=== PATIENT | male | born 1955 ===

== ENCOUNTER 2024-12-11 10:48 | Outpatient (AMB) | payer MEDICARE, SELFPAY ==
--- NOTE | 2024-12-11 10:52 | A.OFFVIS_ITS ---
Intake Visit Reasons: 2 YR follow up Allergies No Known Allergies Allergy (Verified 12/10/24 10:28) HPI Comments Details: 69 years old man with benign essential tremor. It was still there affecting his hand in certain positions but has not significantly worsened. There was no new symptom. [facility] Medical History (Updated 12/11/24 @ 11:10 by Dillan Robertson MD) Anxiety Cerebral microvascular disease Review of Systems Const Details: Mild tremor. Physical Exam Neuro Other: Mental Status: Alert and oriented to person, place, and time. Normal attention. Normal spontaneous speech, fluency, and comprehension. No obvious issues with mood and memory. Affect is appropriate. Cranial Nerves: CN II: Visual elliott full to confrontation, visual acuity intact. CN III, IV, : Pupils equal, round, reactive to light and accommodation. Extraocular movements are normal. CN V: Facial sensation is normal. CN VII: Facial movements symmetrical. CN VIII: Hearing intact to bedside conversation is normal. CN IX, X: Palate elevates symmetrically. CN XI: Shoulder shrug and head turn symmetrical. CN XII: Tongue midline without atrophy or fasciculations. Extrapyramidal: Full facial expressions and blinking. No rigidity. Mild right hand postural tremor Speech: Normal; no dysarthria or tremor. Assessment & Plan Assessment & Plan (1) Tremor: Comment: MRI brain WO at in July 2018: Mild MVD. Code(s): R25.1 - Tremor, unspecified Category: Medical Plan Impression recommendations: 69 years old man with mild postural right hand tremor. Balance gait and coordination were normal. Speech was normal. Mental status was normal. He was reassured and educated and at this time no medicine was prescribed. I would see him back in 3 years' time. Coding Level of Care Code Est Pt Level 4 (69107) Diagnoses Tremor R25.1
--- OUTSIDE RECORDS SUMMARY | 2024-12-11 12:39 | XMS_ITS | Clinical Summary ---
Author Organization [facility] [address] [facility] lding Address [address] [place] [address] Phone Care Team Providers Care Automation And Control Engineer Name Role Phone Shira Alvarez MD Primary Care Provider Allergies No known active allergies Medications cholecalciferol (VITAMIN D-3) 50 mcg (2,000 unit) tablet Take 1 Cap by mouth daily. Active medical supply, miscellaneous (MISCELLANEOUS MEDICAL SUPPLY MISC) CPAP Inhale 6-8 mm into the lungs at bedtime. Patient using [employer] for supplies. 021 Active MULTIVITAMIN ORAL 1 TABLET DAILY Activ e triamcinolone acetonide (KENALOG-40) 40 mg/mL injection Take 1 mL by injection route. 023 Active gabapentin (NEURONTIN) 300 mg capsule Take 1 Capsule by mouth 2 times daily as needed (Back pain). 180 capsule 1 025 Active omeprazole (PriLOSEC) [address] capsule TAKE ONE CAPSULE BY MOUTH EVERY DAY 90 capsule 1 025 Active meloxicam (MOBIC) 15 mg tablet TAKE ONE TABLET BY MOUTH EVERY DAY 90 tablet 1 025 Active pravastatin (PRAVACHOL) 80 mg tablet TAKE ONE TABLET BY MOUTH EVERY DAY 90 tablet 1 025 Active amLODIPine (NORVASC) 5 mg tablet TAKE ONE TABLET BY MOUTH EVERY DAY 90 tablet 1 025 Active benazepriL (LOTENSIN) 10 mg tablet TAKE ONE TABLET BY MOUTH EVERY DAY 90 tablet 1 025 Active tirzepatide, weight loss, (Zepbound) 5 mg/0.5 mL injection Inject 0.5 mL (5 mg total) under the skin every 7 (seven) days. 2 mL 025 Active hylan (Synvisc-One) 48 mg/6 mL syringe injection Take 48 mg by intraarticular route. 023 2024 Discontinued(T herapy completed) tirzepatide, weight loss, (Zepbound) 2.5 mg/0.5 mL injection Inject 0.5 mL (2.5 mg total) under the skin every 7 (seven) days. 2 mL 025 2024 Discontinued tirzepatide, weight loss, (Zepbound) 5 mg/0.5 mL injection Inject 0.5 mL (5 mg total) under the skin every 7 (seven) days for 28 days. 2 mL 025 2024 Discontinued Active Problems Problem Noted Date Diagnosed Date Microalbuminuria 07/10/2024 Effusion of right knee joint 01/25/2022 Overuse syndrome 01/25/2022 Essential hypertension 06/21/2021 Left hip pain 06/21/2021 Vitamin D deficiency 03/28/2018 Overweight (BMI 25.0-29.9) 07/18/2017 Essential tremor 05/02/2017 Overview (01/29/2024): On Primidone- Dr Robertson Obstructive sleep apnea 04/10/2017 Lumbosacral ligament sprain 07/06/2016 Sprain of sacroiliac ligament 07/06/2016 Hearing loss 05/21/2015 Overview (01/29/2024): 05/25 symmetrical high frequency only Osteoarthritis, knee 01/24/2010 Erectile dysfunction 03/20/2006 Lumbago 02/09/2006 Overview (01/29/2024): Chiro initially then increased pain--MRI ER disc herniation--Shaun--PT symptoms much improved, no surgery Follows with [facility]- epidural injections X 5 S/p lumbar decomp surgery Hypothyroidism 07/08/2005 Pure hypercholesterolemia 07/08/2005 Overview (01/29/2024): Lovastatin--pt stopped and did not followup, stated caused decreased memory. On pravastain now Encounters Date Type Department Care Team Description 12/05/2024 Telephone Bariatric Surgery - [address] [phone] Nazia Cain PA 11/26/2024 Telephone Pulmonology [address] [phone] Natalia Ashley NP 11/17/2024 Telephone Pulmonology [address] [phone] Shalini Maldonado MA 11/13/2024 8:30 AM EDT [facility] [address] [phone] Natalia Ashley NP Obstructive sleep apnea (Primary Dx); Essential hypertension; Overweight (BMI 25.0-29.9) 11/06/2024 Telephone Bariatric Surgery - [address] [phone] Nazia Cain PA 10/07/2024 3:15 PM EDT Office Visit Bariatric Surgery [address] [phone] Nazia Cain PA Overweight (BMI 25.0-29.9) (Primary Dx) from Last 3 Months Immunizations Immunization Administration Dates Next Due COVID-19 (Moderna/Spikevax) 12yo and older 12/06/2023 COVID-19 (Pfizer/Comirnaty) 12yo and older 01/02/2023 Influenza Quadravalent, 0.5m l (Fluad) 65yo and older 01/02/2023,12/28/2021,01/02/2021 Influenza Quadravalent, MDCK , 0.5ml, preservative free (Flucelvax) 6mo and older 12/31/2018,12/30/2017 Influenza Quadravalent, MDCK , 0.5ml, with preservative (Flucelvax) 6mo and older 01/03/2017 Influenza Quadrivalent, 0.5m l, preservative free (Fluarix; FluLaval; Fluzone) ages 6mo and older (Afluria) 3yo and older 10/26/2019 Influenza trivalent, 0.5mL ( Fluad) 65yo and older 11/25/2023,01/02/2023 Influenza trivalent, 0.5mL, preservative free (Fluarix; FluLaval; Fluzone) ages 6mo and older (Afluria) 3 years and older 12/31/2018,12/17/2015,01/22/2015,2013,01/01/2013,03/15/2012,12/20/2010,1 03/26/2009 Influenza trivalent, with preservative (Fluzone; Afluria) 6mo and older 12/17/2015,01/22/2015,12/18/2013,2012,03/15/2012,12/20/2010,01/24/2010 Influenza, Unspecified 12/10/2017 Moderna SARS-CoV-2 COVID-19, mRNA, LNP-S, preservative free 01/13/2021 Pfizer SARS-CoV-2 COVID-19, mRNA, LNP-S, preservative free 11/25/2023,01/02/2023,01/13/2021,2020,05/18/2020 Pneumococcal conjugate 20 va lent (Prevnar 20, PCV 20) 2mo and older 11/29/2021,05/25/2021 RSV, bivalent, protein subun it RSVpreF, 0.5mL, Preservative Free (ABRYSVO) 50yo and older or 32 through 36 wks of 01/21/2023 Td Tetanus diptheria (Tdvax) 7yo and older 07/07/2005 Tdap Tetanus diptheria acell ular pertussis (Boostrix; Adacel) 7yo and older 08/08/2013 Zoster recombinant (Shingrix ) 19yo and older 12/15/2017,09/08/2017 Surgical History Surgery Date Site/Laterality Comments TONSILLECTOMY PROCEDURE: HISTORICAL TONSILLECTOMY COLONOSCOPY 10/13/2005 PROCEDURE: HISTORICAL COLONOSCOPY; COMMENT: normal OTHER SURGICAL HISTORY 01/2020 PROCEDURE: DECOMPRESS DISC RF LUMBAR; COMMENT: Dr. Quintana HIP ARTHROPLASTY 03/27/2022 Left PROCEDURE: HISTORICAL HIP REPLACEMENT; COMMENT: at [place], [place] Family History Medical History Relation Name Comments No Known Problems Brother 1 No Known Problems Brother 2 No Known Problems Daughter Hypertension Father Hyperlipidemia Mother Stroke Mother Lung cancer Sister Multiple sclerosis Sister No Known Problems Son 1 Other: kidney failure Son 2 Relation Name Status Comments Brother 1 Alive Brother 2 Alive Daughter Alive Father Alive Mother Alive Sister Alive Son 1 Alive Son 2 Alive Social History Tobacco Use Types Packs/Day Years Used Date Smoking Tobacco: Never Smokeless Tobacco: Never Tobacco Cessation:Counseling Given: Not Answered Alcohol Use Standard Drinks/Week Comments Yes 0 (1 standard drink = 0.6 oz pur e alcohol) Housing Instability Answer Date Recorde d Are you worried that in the next 2 months you may not have stable housing? Patient declined 07/03/2024 Food Access & Nutrition Answer Date Rec orded Do you have access to a vari ety of food including fruits and vegetables? Patient declined 07/03/2024 Health Literacy Answer Date Recorded How often do you need to hav e someone help you when you read instructions, pamphlets, or other written material from your doctor or pharmacy? Patient declined 07/03/2024 Caregiver: How often do you need to have someone help you when you read instructions, pamphlets, or other written material from your doctor or pharmacy? Not on file 025 Financial Risk Answer Date Recorded How hard is it for you to pa y for the very basics like food, housing, medical care, and air conditioning / heating? Patient declined 07/03/2024 Transportation Answer Date Recorded Has the lack of transportati on kept you from meetings, work, or from getting things needed for daily living? Patient declined 07/03/2024 Has the lack of transportati on kept you from medical appointments or from getting medications? Patient declined 07/03/2024 Social Isolation Answer Date Recorded How often do you feel lonely or isolated from th ose around you? Never 07/03/2024 Food Risk Answer Date Recorded Within the past 12 months we worried whether our food would run out before we got money to buy more. Patient declined 025 Within the past 12 months th e food we bought just didn't last and we didn't have money to get more. Patient declined 06/11 Dependent Care Answer Date Recorded Do you need help finding or paying for care for your loved ones. For example, child protective services specialist or elderly care for an older adult? Patient declined 07/03/2024 Education Answer Date Recorded Do you think completing more education or training, like finishing a GED, going to college, or learning a trade, would be helpful for you? Patient declined 07/03/2024 Employment and Income Answer Date Recor ded During the last four weeks, have you been actively looking for work? No 07/03/2024 Living Situation Answer Date Recorded What is your living situation? Unrecognized valu e 07/03/2024 Sex and Gender Information Value Date Recorded Sex Assigned at Not on file Legal Sex Male 10:08 AM EST Gender Identity Not on file Sexual Orientation Not on file Obstetrics History Last Filed Vital Signs Vital Sign Reading Time Taken Comments Blood Pressure 104/60 11/13/2024 8:30 AM EDT Pulse 65 11/13/2024 8:30 AM EDT Temperature 36.4 C (97.5 F) 11/13/2024 8:30 AM EDT Respiratory Rate 16 11/13/2024 8:30 AM EDT Oxygen Saturation 95% 11/13/2024 8:30 AM EDT Inhaled Oxygen Concentration - - Weight 99.9 kg (220 lb 3.2 oz) 11/13/2024 8:30 A M EDT Height 190.5 cm (6' 3 ) 11/13/2024 8:30 AM EDT Body Mass Index 27.52 11/13/2024 8:30 AM EDT Plan of Treatment Upcoming Encounters Date Type Department Care Team (Late st Contact Info) Description 01/13/2025 8:30 AM EST Office Visit Adult Medicine - [place] [address] [place] [phone] Leandro Montemayor PA [address] [place] [address] 02/18/2025 3:00 PM EST Office Visit Bariatric Surgery - [address] [phone] Nazia Cain PA [address] [place] [phone] 11/13/2025 9:45 AM EDT Office Visit Pulmonology - [address] [place] [phone] Natalia Ashley, [place] [address] [place] [phone] Health Maintenance Due Date Last Done Comments DTaP,Tdap,and Td Vaccines (3 - Td or Tdap) 08/09/2023 08/08/2013, 07/07/2005 Falls Risk Assessment 07/09/2024 07/10/2023 Medicare Annual Wellness Visit 07/09/2024 07/10/2023 COVID-19 Vaccine ( season) 2024 12/06/2023, 11/25/2023, 01/02/2023, Additional history exists Influenza Vaccine (#1) 2024 , 01/02/2023, 01/02/2023, Additional history exists Social Influencers of Health Screening 07/03/2025 07/03/2024 Hypertension/CHF/CAD Annual BMP Blood Test 07/07/2025 07/07/2024, 03/16/2023, 03/02/2022, Additional history exists Colorectal Cancer Screening: Colonoscopy 09/07/2027 09/06/2017 Cholesterol Screening (Lipid Panel) 07/07/2029 07/07/2024, 03/16/2023 Hepatitis C Screening Completed 04/17/2013 Zoster Vaccines Completed 12/15/2017, 09/08/2017 Pneumococcal Vaccine: 50+ Years Completed 11/29/2021, 05/25/2021 RSV Immunization Adult Patients Completed 01/21/2023 Depression Screening Completed 07/03/2024, 07/10/19 HIB Vaccines Aged Out No longer eligi ble based on patient's age to complete this topic HPV Vaccines Aged Out No longer eligi ble based on patient's age to complete this topic Hepatitis A Vaccines Aged Out No long er eligible based on patient's age to complete this topic Hepatitis B Vaccines Aged Out No long er eligible based on patient's age to complete this topic IPV Vaccines Aged Out No longer eligi ble based on patient's age to complete this topic MMR Vaccines Aged Out No longer eligi ble based on patient's age to complete this topic Meningococcal ACWY Vaccine Aged Out N o longer eligible based on patient's age to complete this topic Meningococcal B Vaccine Aged Out No l onger eligible based on patient's age to complete this topic RSV Immunization Patients Under 20 months Aged Out No longer eligible based on patient's age to complete this topic Varicella Vaccines Aged Out No longer eligible based on patient's age to complete this topic Medical Devices Implanted Type Area Death Clearance Coordinator Device Identifier Shelf Expiration Date Model / Serial / Lot Hip Stem Collared High Sz 7 Stry-Howm [id number] Implanted:Qty: 1 on 03/27/2022 by Kobe Cerda MD Left: Hip [employer] 07/24/2026 [id number] / / [id number] Lp Hex Screw 6.5x30mm Stry-Howm [id number] Implanted:Qty: 1 on 03/27/2022 by Kobe Cerda MD Left: Hip [employer] [id number] 01/24/20278476-2896 / / [id number] Lp Hex Screw 6.5x30mm Stry-Howm [id number] Implanted:Qty: 1 on 03/27/2022 by Kobe Cerda MD Left: Hip [employer] [id number] 01/17/20275205-2342 / / [id number] Liner Trident X3 0 Deg 36mm 5.9mm Sz E Stry-Howm [id number] Implanted:Qty: 1 on 03/27/2022 by Kobe Cerda MD Left: Hip [employer] [id number] 02/14/2027 723-00-36E / / [id number] Tritanium Cluster Hole Shell 54mm Stry-Howm [id number] Implanted:Qty: 1 on 03/27/2022 by Kobe Cerda MD Left: Hip [employer] [id number] 01/11/2027 702-04-54E / / [id number] Hip Head Delta Biolox 36mm -5 Brenda-Srinivasan [id number] Implanted:Qty: 1 on 03/27/2022 by Kobe Cerda MD Left: Hip [employer] [id number] 12/14/2026 [id number] / / [id number] Procedures Procedure Name Priority Date/Time Associated Diagnosis Comments COMPREHENSIVE METABOLIC PANEL Routine 07/07/2024 8:39 AM EDT Essential hypertension Hypothyroidism, unspecified type Pure hypercholesterolemi a Medicare annual wellness visit, subsequent LIPID PANEL WITH REFLEX TO DIRECT LDL Routine 07/07/2024 8:39 AM EDT Essential hypertension Hypothyroidism, unspecified type Pure hypercholesterolemi a Medicare annual wellness visit, subsequent DEPRESSION SCREENING Routine 07/10/2023 FALLS RISK ASSESSMENT Routine 07/10/2023 COLONOSCOPY Routine 09/06/2017 HEPATITIS C SCREENING Routine 04/17/2013 from Last 3 Months or Most Recently Relevant to Health Maintenance Results * Lipid panel with reflex to direct LDL (07/07/2024 8:39 AM EDT) Cholesterol 163 0 - 200 mg/dL LAB CHEMISTRY METHOD 07/07/2024 4:04 PM EDT [facility] Triglycerides 89 0 - 150 mg/dL LAB CHEMISTRY METHOD 07/07/2024 4:04 PM EDT [facility] HDL 56 >=40 mg/dL LAB CHEMISTRY METHOD 07/07/2024 4:04 PM EDT [facility] LDL Calculated 89 0 - 100 mg/dL LAB CHEMISTRY METHOD 07/07/2024 4:04 PM EDT [facility] VLDL Cholesterol Mike 17.8 mg/dL LAB CHEMISTRY METHOD 07/07/2024 4:04 PM T [facility] Non HDL Chol. (LDL+VLDL) 107 <145 mg/dL LAB CHEMISTRY METHOD 07/07/2024 4:04 PM [facility] Chol/HDL Ratio 2.9 0.0 - 4.4 LAB CHEMISTRY METHOD 07/07/2024 4:04 PM T [facility] Blood Venous blood specimen / Unknown Venipuncture / Unknown 07/07/2024 8:39 AM EDT 07/07/2024 8:39 AM EDT us Leandro ROLAND LAB BLOOD ORDERABLES Final Re sult [facility] [address] [place] [address], [place] [phone] * (ABNORMAL) Comprehensive metabolic panel (07/07/2024 8:39 AM EDT) Sodium 140 133 - 145 mmol/L LAB CHEMISTRY METHOD 07/07/2024 4:04 PM [facility] Potassium 4.2 3.5 - 5.5 mmol/L LAB CHEMISTRY METHOD 07/07/2024 4:04 PM [facility] Chloride 108 96 - 110 mmol/L LAB CHEMISTRY METHOD 07/07/2024 4:04 PM [facility] CO2 24 21 - 32 mmol/L LAB CHEMISTRY METHOD 07/07/2024 4:04 PM [facility] Anion Gap 8 3 - 11 LAB CHEMISTRY METHOD 07/07/2024 4:04 PM [facility] Glucose 102(H) 70 - 100 mg/dL LAB CHEMISTRY METHOD 07/07/2024 4:04 PM [facility] BUN 19 5 - 25 mg/dL LAB CHEMISTRY METHOD 07/07/2024 4:04 PM [facility] Creatinine 1.05 0.70 - 1.30 mg/dL LAB CHEMISTRY METHOD 07/07/2024 4:04 PM [facility] eGFR 77 >=60 mL/min/1. 73m2 LAB CHEMISTRY METHOD 07/07/2024 4:04 PM [facility] Comment:Calculation based on the Chronic Kidney Disease Epidemiology Collaboration (CKD-EPI) equation refit without adjustment for race. BUN/Creatinine Ratio 18.1 LAB CHEMISTRY METHOD 07/07/2024 4:04 PM [facility] Calcium 10.2 8.5 - 10.5 mg/dL LAB CHEMISTRY METHOD 07/07/2024 4:04 PM [facility] AST (SGOT) 21 10 - 42 unit/L LAB CHEMISTRY METHOD 07/07/2024 4:04 PM [facility] ALT (SGPT) 33 10 - 60 unit/L LAB CHEMISTRY METHOD 07/07/2024 4:04 PM [facility] Alkaline Phosphatase 62 42 - 121 unit/L LAB CHEMISTRY METHOD 07/07/2024 4:04 PM [facility] Total Protein 7.4 6.0 - 8.0 g/dL LAB CHEMISTRY METHOD 07/07/2024 4:04 PM [facility] Albumin 4.1 3.2 - 5.0 g/dL LAB CHEMISTRY METHOD 07/07/2024 4:04 PM [facility] Total Bilirubin 0.6 0.0 - 1.4 mg/dL LAB CHEMISTRY METHOD 07/07/2024 4:04 PM [facility] Blood Venous blood specimen / Unknown Venipuncture / Unknown 07/07/2024 8:39 AM EDT 07/07/2024 8:39 AM EDT us Leandro ROLAND LAB BLOOD ORDERABLES Final Re sult [facility] [address] [place] [address], * Falls Risk Assessment (07/10/2023) Falls Risk Assessment Abstracted Historical Provider HEALTH MAINTENANCE Final Result * Depression Screening (07/10/2023) Depression Screening Abstracted Historical Provider HEALTH MAINTENANCE Final Result * Colonoscopy (09/06/2017) Pathologist [facility] Colonoscopy No Interpretation , Abstracted Anatomical Region Laterality Modality Other Historical Provider HEALTH MAINTENANCE Final Result * Hepatitis C Screening (04/17/2013) Hepatitis C Screening Abstracted [facility] Provider HEALTH MAINTENANCE Final Result from Last 3 Months or Most Recently Relevant to Health Maintenance Insurance MEDICARE [facility] Care Teams Automation And Control Engineer Relationship Specialty Start Date End Date Shira Alvarez MD [address] [place] [id number] PCP - General Internal Medicine 04/25/21
--- OUTSIDE RECORDS SUMMARY | 2024-12-11 12:39 | XMS_ITS ---
Author Name [facility] Organization Unknown History of Medication Use Medication Directions Dispensed Refills Start Date End Date Stat Synvisc-One 48 mg/6 mL intra-articular syringe Take 48 mg by intraarticular route. 11/27/2022 active Kenalog 40 mg/mL suspension for injection Take 1 mL by injection route. 08/28/2022 active amoxicillin 500 mg capsule TAKE ONE CAPSULE BY MOUTH EVERY 8 HOURS UNTIL GONE 08/02/2023 active Paxlovid 300 mg (150 mg x 2)-100 mg tablets in a dose pack TAKE 2NIRMATRELVIR AND 1RITONAVIR TOGETHER TWICE A DAY X 5 DAYS 08/28/2022 active Synvisc-One 48 mg/6 mL intra-articular syringe active amoxicillin 500 mg capsule TAKE ONE CAPSULE BY MOUTH EVERY 8 HOURS UNTIL GONE active amoxicillin 500 mg tablet TAKE 4 TABLETS BY MOUTH 1 HOUR PRIOR TO DENTAL PROCEDURE active amoxicillin 500 mg tablet TAKE 4 TABLETS BY MOUTH 1 HOUR PRIOR TO DENTAL PROCEDURE active benazepril 10 mg tablet TAKE ONE TABLET BY MOUTH EVERY DAY active gabapentin 300 mg capsule TAKE ONE CAPSULE BY MOUTH TWICE A DAY active gabapentin 300 mg capsule TAKE ONE CAPSULE BY MOUTH TWICE A DAY active loperamide 2 mg capsule TAKE ONE CAPSULE BY MOUTH FOUR TIMES A DAY IF NEEDED FOR DIARRHEA FOR UP TO 10 DAYS active omeprazole 20 mg capsule,delayed release TAKE ONE CAPSULE BY MOUTH EVERY DAY active Wegovy 2.4 mg/0.75 mL subcutaneous pen injector INJECT 2.4 MG UNDER THE SKIN EVERY 7 DAYS active Zepbound 2.5 mg/0.5 mL subcutaneous pen injector INJECT 0.5ML UNDER THE SKIN EVERY 7 DAYS active Zepbound 5 mg/0.5 mL subcutaneous pen injector INJECT 0.5ML 5MG TOTAL) UNDER THE SKIN EVERY 7 DAYS. ROTATE INJECTION SITES. active Zepbound 7.5 mg/0.5 mL subcutaneous pen injector INJECT 0.5ML 7.5MG) UNDER THE SKIN ONCE WEEKLY active Problems Problem Status Onset Date Problem Type Date of Resoluti on Source Osteoarthritis of right knee joint active 2022-08-28 ProblemAct [facility] Iliotibial band friction syndrome active 2022-08-28 ProblemAct [facility] Encounters Encounter Type Encounter Reason Primary Diagnosis Location Date Ambulatory [facility] 10/09/2024 [facility] 10/09/2024 [facility] 12/04/2023 [facility] 08/02/2023 [facility] 04/09/2023 [facility] 11/09/2022 [facility] 11/06/2022 [facility] 09/22/2022 [facility] 09/22/2022 [facility] 09/22/2022 [facility] 08/28/2022 [facility] 08/23/2022 [facility] 2022 [facility] 2022 [facility] 08/09/2022 [facility] 08/09/2022 [facility] 07/11/2022 [facility] 07/11/2022 [facility] 07/11/2022 [facility] 07/11/2022 [facility] 07/11/2022 [facility] 07/10/2022 [facility] 07/10/2022 [facility] 05/19/2022 Care Team Organization Name Specialty Phone Email Start Date End Da te [facility] 10/29/2024 [facility] Shira Alvarez MD Primary Care 11/16/2022 10/29/2023 [facility] Natalia Ashley Primary Care 08/18/2022 10/29/2023 [facility] KIA BALDWIN Primary Care 03/20/20222023 [facility] CARO Goyal Primary Care 01/17/202210/10
--- OUTSIDE RECORDS SUMMARY | 2024-12-11 12:39 | XMS_ITS | Clinical Summary ---
Author Organization [facility] Address [address] [place] [address] Care Team Providers Care Data Control Clerk Name Role Phone Shira Alvarez MD Primary Care Provider Allergies No known active allergies Medications Medication Sig Dispensed Refills Start Date End Date Status amLODIPine (NORVASC) tablet 5 mg TAKE ONE TABLET BY MOUTH EVERY DAY 0 01/16/2022 Active gabapentin (NEURONTIN) 300 MG capsule 3 (three) times a day as needed. 0 09/04/2018 Active omeprazole (PriLOSEC) 20 MG capsule omeprazole 20 mg capsule,delayed release 0 08/29/2021 Active pravastatin (PRAVACHOL) tablet 80 mg pravastatin 80 mg tablet 0 01/16/2022 Active benazepril (LOTENSIN) 10 MG tablet 0 Active Cholecalciferol 50 MCG (1999) TABS 0 Active diphenhydrAMINE-APA P, sleep, (TYLENOL PM EXTRA STRENGTH PO) Take by mouth. 0 Active acetaminophen (TYLENOL EXTRA STRENGTH) 500 MG tablet Take 2 tablets (1,000 mg total) by mouth every 8 (eight) hours. 30 tablet 0 03/27/2022 Active methocarbamol (ROBAXIN) 750 MG tablet Take 1 tablet (750 mg total) by mouth every 6 (six) hours as needed for up to 60 doses. 60 tablet 0 03/27/2022 Active oxyCODONE (ROXICODONE) 5 MG immediate release tablet Take 1 tablet (5 mg total) by mouth every 4 (four) hours as needed for up to 30 doses. 30 tablet 0 03/27/2022 Active amoxicillin (AMOXIL) 500 MG tablet Take 4 tabs 1 hour prior to dental procedure 20 tablet 3 04/25/2022 Active Active Problems Problem Noted Date Diagnosed Date Overuse syndrome 01/25/2022 Patellofemoral arthritis of right knee Effusion of right knee joint 01/25/2022 Family History Medical History Relation Name Comments No Sig Med Hx Father Stroke Mother Relation Name Status Comments Father Alive Mother Alive Social History Tobacco Use Types Packs/Day Years Used Date Smoking Tobacco: Never Smokeless Tobacco: Never Tobacco Cessation:Counseling Given: Not Answered Alcohol Use Standard Drinks/Week Comments Yes 3 (1 standard drink = 0.6 oz pur e alcohol) Sex and Gender Information Value Date Recorded Sex Assigned at Male 02/28/2022 2:55 PM EST Gender Identity Male 02/28/2022 2:55 PM EST Sexual Orientation Not on file Job Start Date Occupation Industry Not on file Not on file Not on file Last Filed Vital Signs Vital Sign Reading Time Taken Comments Blood Pressure 115/75 03/27/2022 10:00 AM EST Pulse 68 03/27/2022 10:00 AM EST Temperature 36.3 C (97.3 F) 03/27/2022 9:15 AM EST Respiratory Rate 16 03/27/2022 10:0 0 AM EST Oxygen Saturation 97% 03/27/2022 9:59 AM EST Inhaled Oxygen Concentration - - Weight 102.1 kg (225 lb 1.4 oz) 03/27/2022 5:58 AM EST Height 182.9 cm (6') 03/27/2022 5:58 AM EST Body Mass Index 30.53 03/27/2022 5:58 AM EST Plan of Treatment Health Maintenance Due Date Last Done Comments Hepatitis C Screening 1955 Depression Screening 1967 BMI Counseling 08/12/1973 Preventative Health Evaluation 08/12/1973 Colon Cancer Screening (Colonoscopy) 08/12/2000 Shingrix-Zoster Vaccine (2 of 2) 02/09/2018 12/15/2017 Fall Risk Assessment 08/12/2020 Pneumococcal Vaccine (1 of 1 - PCV) 08/12/2020 DTap / Tdap / Td (2 - Td or Tdap) 08/09/2023 08/08/2013 COVID-19 Vaccine (3 - season) 2024 06/08/2020, 05/18/2020 Influenza Vaccine (#1) 2024 9, 01/03/2017, 12/17/2015, Additional history exists RSV Adult > 60+ Yrs or (1 - 1-dose 75+ series) 08/12/2030 Hepatitis B Vaccines Aged Out No long er eligible based on patient's age to complete this topic RSV Ped < 20 months Aged Out No longe r eligible based on patient's age to complete this topic Medical Devices Implanted Type Area Explosion Welder Device Identifier Shelf Expiration Date Model / Serial / Lot Hip Stem Collared High Sz 7 Stry-Howm [id number] 02 - [id number] Implanted:Qty: 1 on 03/27/2022 by Kobe Cerda MD at [facility] [place] and Med Left: Hip [employer] 07/24/2026 [id number] / / [id number] Lp Hex Screw 6.5x30mm Stry-Howm [id number] - [id number] Implanted:Qty: 1 on 03/27/2022 by Kobe Cerda MD at [facility] [place] and Med Left: Hip [employer] [id number] 01/24/2027 [id number] / / [id number] Lp Hex Screw 6.5x30mm Stry-Howm [id number] 78 - [id number] Implanted:Qty: 1 on 03/27/2022 by Kobe Cerda MD at [facility] [place] and Med Left: Hip [employer] [id number] 01/17/2027 [id number] / / [id number] Liner Trident X3 0 Deg 36mm 5.9mm Sz E Stry-Howm [id number] - [id number] Implanted:Qty: 1 on 03/27/2022 by Kobe Cerda MD at [facility] [place] and Med Left: Hip [employer] [id number] 02/14/2027 723-00-36E / / [id number] Tritanium Cluster Hole Shell 54mm Stry-Howm [id number] - [id number] Implanted:Qty: 1 on 03/27/2022 by Kobe Cerda MD at [facility] [place] and [facility] Left: Hip [employer] [id number] 01/11/2027 702-04-54E / / [id number] Hip Head Delta [employer]ox 36mm -5 Liane [id number] 190 - [id number] Implanted:Qty: 1 on 03/27/2022 by Kobe Cerda MD at [facility] [place] and [facility] Left: Hip [employer] [id number] 12/14/2026 6570-0-036 / / [id number] Advance Directives For more information, please contact: [phone] Latest Code Status on File Code Status Date Activated Date Inactivated Comments Full Code 03/27/2022 8:39 AM 03/27/2022 7:20 PM This code status was ascertained in the following way: discussion with patient . Code Status History Code Status Date Activated Date Inactivated Comments Full Code 03/27/2022 5:07 AM 03/27/2022 8:39 AM This code status was ascertained in the following way: discussion with patient . Care Teams Data Control Clerk Relationship Specialty Start Date End Date Shira Alvarez MD [address] [place] [address] PCP - General Family Medicine 01/03/22
== END 2024-12-11 11:14 | disposition home or self-care (01) ==
PROVIDERS: PCP Pediatrics; Referring Provider Pediatrics; Visit Provider Psychiatry & Neurology Neurology
DX: R25.1 Tremor, unspecified (principal)
CPT/HCPCS: 99214

== ENCOUNTER → 2024-12-11 10:48 | Outpatient (BNVA) | payer MEDICARE, SELFPAY | PROVIDERS: PCP Pediatrics; Referring Provider Pediatrics; Visit Provider Psychiatry & Neurology Neurology | DX: R25.1 Tremor, unspecified (principal) | CPT/HCPCS: 99212 ==